=== PATIENT | female | born 1985 | race Two or more races ===

== ENCOUNTER 2024-04-06 15:01 | Emergency (ER) | payer OTHER ==
[~2024-04-06] VITALS: Ht 162.6 cm; Wt 58.1 kg
[2024-04-06] MEDS ORDERED: ZYRTEC10 M3 PO (16:13)
[2024-04-06] MEDS ORDERED: DEXAMETHASONE SODIUM PHOSPHATE 4 MG/ML VIAL IM STA (17:10)
[2024-04-06] MEDS ORDERED: DIPHENHYDRAMINE HCL 50 MG/ML VIAL 1ML IM STA (17:11)
[2024-04-06 17:56] LABS: HEMATOCRIT 38.1 % (36.0-45.00); HEMOGLOBIN 12.5 g/dL (12.0-15.00); MEAN CELL VOLUME 80.2 fL (80.00-100.00); MEAN CORPUSCULAR HEMOGLOBIN 26.2 pg (27.00-32.0); MEAN CORPUSCULAR HGB CONC 32.7 g/dl (32.0-36.0); PLATELET COUNT 290 K/uL (150-450); RED BLOOD COUNT 4.75 M/uL (4.00-6.00); RED CELL DISTRIBUTION WIDTH 14.6 % (11.5-14.5)
[2024-04-06] MEDS ORDERED: ZITHROMAX TRI-500 MG PO (18:12)
[2024-04-06] MEDS ORDERED: ACETAMINOPHEN500 M1 PO (18:13)
[2024-04-06 19:48] VITALS: BP 119/81; O2SAT 99
== END 2024-04-06 19:50 | disposition home or self-care (01) ==
LOC: ER 15:01
DX: B34.9 Viral infection, unspecified (principal); Z20.822 Contact with and (suspected) exposure to COVID-19

== ENCOUNTER 2024-04-07 09:34 | Outpatient (CLI) | payer OTHER ==
[~2024-04-07 09:34] MED LIST: ACETAMINOPHEN500 M1 PO; ZITHROMAX TRI-500 MG PO; ZYRTEC10 M3 PO
[2024-04-07 12:03] LABS: ALBUMIN 4.3 gm/dL (3.4-5.0); BILIRUBIN TOTAL 0.25 mg/dL (0.3-1.2); CREATININE SERUM 0.5 mg/dL (0.55-1.02); GFR 137.35; GLOBULINA 4.1 G/DL (2.4-3.5); POTASSIUM 3.82 mEq/L (3.5-5.1); TOTAL PROTEIN 8.4 gm/dL (6.4-8.2); TSH 0.581 uIU/mL (0.358-3.74)
[2024-04-07 12:20] LABS: VITAMIN D3 25 HYDROXY 26.84 ng/ml (30-120)
[2024-04-08 10:10] LABS: PROLACTIN 36.6 ng/mL (4.8-33.4)
== END 2024-04-07 09:41 | disposition home or self-care (01) ==
LOC: LAB 09:34
DX: E22.1 Hyperprolactinemia (principal); E55.9 Vitamin D deficiency, unspecified; E04.1 Nontoxic single thyroid nodule; D51.9 Vitamin B12 deficiency anemia, unspecified; R68.89 Other general symptoms and signs

== ENCOUNTER → 2024-09-21 13:44 | Outpatient (CLI) | payer OTHER ==
[2024-09-21 14:56] LABS: HEMATOCRIT 36.3 % (36.0-45.00); HEMOGLOBIN 11.8 g/dL (12.0-15.00); MEAN CELL VOLUME 78.8 fL (80.00-100.00); MEAN CORPUSCULAR HEMOGLOBIN 25.7 pg (27.00-32.0); MEAN CORPUSCULAR HGB CONC 32.6 g/dl (32.0-36.0); PLATELET COUNT 287 K/uL (150-450); RED CELL DISTRIBUTION WIDTH 16.6 % (11.5-14.5)
[2024-09-21 15:06] LABS: COVID-19 AG NEGATIVE (NEGATIVE)
[2024-09-21 15:11] LABS: INFLUENZA A AG NEGATIVE (NEGATIVE)
== END | disposition home or self-care (01) ==
LOC: LAB 13:44
PROVIDERS: ATTEND General Practice
DX: A49.3 Mycoplasma infection, unspecified site (principal); J11.1 Influenza due to unidentified influenza virus with other respiratory manifestations; Z20.822 Contact with and (suspected) exposure to COVID-19

== ENCOUNTER → 2025-01-24 11:41 | Outpatient (CLI) | payer OTHER ==
[2025-01-24 12:33] LABS: BASO % 0.3 % (0.1-1.2); EOS # 0.23 (0.04-0.54); EOS % 3.6 % (0.7-7.0); LYMPH # 1.68 (1.18-3.74); LYMPH % 26.3 % (19.3-53.1); MEAN PLATELET VOLUME 10.10 fl (9.4-12.4); MONO # 0.44 (0.24-0.82); MONO % 6.9 % (4.7-12.5); NEUT # 3.99 (1.56-6.13); NEUT % 62.6 % (34.0-71.1); RED CELL DISTRIBUTION WIDTH 15.9 % (11.6-14.4)
[2025-01-24 12:43] LABS: URINE APPEARANCE Clear; URINE BILIRRUBIN Negative (NEGATIVE); URINE BLOOD Large; URINE COLOR Yellow; URINE GLUCOSE Negative (NEGATIVE); URINE KETONE Negative (NEGATIVE); URINE LEUKOCYTE Small; URINE NITRATE Negative; URINE PROTEIN Negative (NEGATIVE); URINE UROBILINOGEN 0.2 E.U./dl
[2025-01-24 12:46] LABS: URINE BACTERIA 207.5 uL (0.0-1933); URINE EPITHELIAL CELLS 29.5 uL (0.0-38.8); URINE RBC 28.0 uL (0.0-20.8); URINE WBC 7.8 uL (0.0-23.2)
[2025-01-24 12:47] LABS: URINE CAST 0.73 uL (0.0-1.40)
[2025-01-24 13:34] LABS: ALT/SGPT 25.0 U/L (12-78); AST/SGOT 16.0 U/L (15-37); BILIRUBIN TOTAL 0.38 mg/dL (0.3-1.2); BUN CREA RATIO 20.0 (7.0-25.0); CHOL HDL RATIO 2.4 (0-5.0); CREATININE SERUM 0.45 mg/dL (0.55-1.02); GFR 154.32; GLOBULINA 3.4 G/DL (2.4-3.5); GLUCOSE FASTING 80.0 mg/dL (65-100); HDL 65.0 mg/dl (40-60); LDL 84.0 mg/dl (0-130); OSMOLALITY SERUM 279.0 MOSM/KG (275-295); TSH 2.22 uIU/mL (0.358-3.74); VLDL 9.0 (0-39)
[2025-01-26 05:07] LABS: hav igm Negative (Negative); hep b c Negative (Negative); hep b s ag Negative (Negative)
[2025-01-26 21:07] LABS: chla t Negative (Negative); neiss Negative (Negative)
== END | disposition home or self-care (01) ==
LOC: LAB 11:41
DX: E78.5 Hyperlipidemia, unspecified (principal); E03.9 Hypothyroidism, unspecified; E11.8 Type 2 diabetes mellitus with unspecified complications; E55.9 Vitamin D deficiency, unspecified; N93.0 Postcoital and contact bleeding; Z11.3 Encounter for screening for infections with a predominantly sexual mode of transmission; A56.09 Other chlamydial infection of lower genitourinary tract; A54.03 Gonococcal cervicitis, unspecified; K75.9 Inflammatory liver disease, unspecified; A53.9 Syphilis, unspecified; B20 Human immunodeficiency virus [HIV] disease; A64 Unspecified sexually transmitted disease

== ENCOUNTER 2025-02-06 15:09 | Outpatient (CLI) | payer OTHER ==
[2025-02-06 15:34] LABS: BASO % 0.4 % (0.1-1.2); EOS # 0.45 (0.04-0.54); EOS % 8.0 % (0.7-7.0); LYMPH # 1.29 (1.18-3.74); LYMPH % 22.8 % (19.3-53.1); MEAN PLATELET VOLUME 9.40 fl (9.4-12.4); MONO # 0.39 (0.24-0.82); MONO % 6.9 % (4.7-12.5); NEUT # 3.49 (1.56-6.13); NEUT % 61.7 % (34.0-71.1); RED CELL DISTRIBUTION WIDTH 15.6 % (11.6-14.4)
[2025-02-06 15:51] LABS: COVID-19 AG NEGATIVE (NEGATIVE)
[2025-02-06 16:03] LABS: MYCOPLASMA PNEUMONIAE IGM NON REACTIVE (NO REACTIVE)
== END 2025-02-06 15:12 | disposition home or self-care (01) ==
LOC: LAB 15:09
DX: J11.1 Influenza due to unidentified influenza virus with other respiratory manifestations (principal); Z20.822 Contact with and (suspected) exposure to COVID-19; M25.571 Pain in right ankle and joints of right foot

== ENCOUNTER 2025-02-24 13:39 | Outpatient (CLI) | payer OTHER | END 2025-02-24 13:44 | disposition home or self-care (01) | LOC: MAMO-SONO 13:39 | PROVIDERS: ATTEND Obstetrics & Gynecology | DX: N64.4 Mastodynia (principal); Z12.39 Encounter for other screening for malignant neoplasm of breast ==

== ENCOUNTER 2025-02-24 15:30 | Emergency (ER) | payer OTHER ==
[~2025-02-24] VITALS: Ht 162.6 cm; Wt 60.8 kg
[2025-02-24 18:54] LABS: BASO % 0.3 % (0.1-1.2); EOS # 0.47 (0.04-0.54); EOS % 7.3 % (0.7-7.0); LYMPH # 1.62 (1.18-3.74); LYMPH % 25.0 % (19.3-53.1); MEAN PLATELET VOLUME 9.30 fl (9.4-12.4); MONO # 0.44 (0.24-0.82); MONO % 6.8 % (4.7-12.5); NEUT # 3.91 (1.56-6.13); NEUT % 60.4 % (34.0-71.1); RED CELL DISTRIBUTION WIDTH 15.1 % (11.6-14.4)
[2025-02-24 20:01] LABS: COVID-19 AG NEGATIVE (NEGATIVE)
== END 2025-02-25 00:18 | disposition home or self-care (01) ==
LOC: ER 15:30
PROVIDERS: General Practice
DX: J06.9 Acute upper respiratory infection, unspecified (principal); Z20.822 Contact with and (suspected) exposure to COVID-19; Z91.013 Allergy to seafood